=== PATIENT | female | born 2000 | race Caucasian/White ===

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

== ENCOUNTER 2021-07-17 20:34 | Emergency (ER) | payer MEDICAID ==
[2021-07-17] MEDS ORDERED: Take Home: Ciprofloxacin 500 MG Tab, 2 Tab Pack PO ONE (21:18)
--- NOTE | 2021-07-17 21:22 | EDM.PDOC ---
ED HPI GENERAL MEDICAL PROBLEM - General Stated Complaint: POSSIBLE UTI Time Seen by Provider: 07/17/21 21:17 Source of Information: Reports: Patient History Limitations: Reports: No Limitations - History of Present Illness INITIAL COMMENTS - FREE TEXT/NARRATIVE: Patient presents with a day of suprapubic pressure, dysuria, frequency. History of uti remote. no concerns for sti. no fevers of back pain. Onset Date: 07/16/21 - Related Data Allergies Allergy/AdvReac Type Severity Reaction Status Date / Time No Known Allergies Allergy Verified 03/13/20 15:17 Home Meds: Home Meds Phenazopyridine HCl [Pyridium] 100 mg PO TID #9 tablet 03/13/20 [Rx] cephALEXin [Cephalexin] 500 mg PO QID #20 tablet 03/13/20 [Rx] Ciprofloxacin HCl [Cipro] 500 mg PO BID #4 tablet 07/17/21 [Rx] Past Medical History - Past Health History Medical/Surgical History: Denies Medical/Surgical History Social & Family History - Tobacco Use Tobacco Use Status *Q: Never Tobacco User - Alcohol Use Alcohol Use History: No Alcohol Use in Last Twelve Months: No - Recreational Drug Use Recreational Drug Use: No Drug Use in Last 12 Months: No ED ROS GENERAL - Review of Systems Review Of Systems: See Below Constitutional: Reports: No Symptoms HEENT: Reports: No Symptoms Respiratory: Reports: No Symptoms Cardiovascular: Reports: No Symptoms Endocrine: Reports: No Symptoms GI/Abdominal: Reports: No Symptoms : Reports: Dysuria, Frequency, Urgency. Denies: Discharge, Flank Pain, Hematuria, Incontinence, Urinary Retention Musculoskeletal: Reports: No Symptoms Skin: Reports: No Symptoms Neurological: Reports: No Symptoms ED EXAM, GI/ABD - Physical Exam Exam: See Below Exam Limited By: No Limitations General Appearance: Alert, WD/WN, No Apparent Distress Ears: Normal External Exam Nose: Normal Inspection Throat/Mouth: Normal Inspection, Normal Lips, Normal Voice Head: Atraumatic Respiratory/Chest: No Respiratory Distress, Lungs Clear Cardiovascular: Normal Peripheral Pulses, Regular Rate, Rhythm GI/Abdominal Exam: Normal Bowel Sounds, Soft, Non-Tender Back Exam: No: CVA Tenderness (L), CVA Tenderness (R) Extremities: Normal Inspection Neurological: Alert, Oriented Course - Orders/Labs/Meds Orders: Active Orders 24 hr Category Date Time Status CULTURE URINE [RM] Stat Lab 07/17/21 21:02 Received Labs: Laboratory Tests 07/17/21 Range/Units 21:02 Urine Color Yellow (YELLOW) Urine Appearance Slightly cloudy H (CLEAR) Urine pH 5.5 (5.0-8.0) Ur Specific Admire >=1.030 Urine Protein Negative (NEGATIVE) mg/dL Urine Glucose (UA) Negative (NEGATIVE) mg/dL Urine Ketones Negative (NEGATIVE) mg/dL Urine Occult Blood Trace-intact H (NEGATIVE) Urine Nitrite Negative (NEGATIVE) Urine Bilirubin Negative (NEGATIVE) Urine Urobilinogen 1.0 (0.2) EU/dL Ur Leukocyte Esterase Trace H (NEGATIVE) Urine RBC 0-5 (NOT SEEN) /HPF Urine WBC 5-10 H (NOT SEEN) /HPF Ur Squamous Epith Cells Few H (NOT SEEN) /HPF Urine Bacteria Occasional H (NOT SEEN) /HPF Urine Mucus Occasional H (NOT SEEN) /LPF Meds: Medications Discontinued Medications Generic Name Dose Route Start Last Admin Trade Name Freq PRN Reason Stop Dose Admin Ciprofloxacin 2 packet 07/17/21 21:18 Take Home: Ciprofloxacin 500 Mg Tab, 2 Tab Pack PO 07/17/21 21:19 ONETIME ONE - Re-Assessments/Exams Free Text/Narrative Re-Assessment/Exam: 07/17/21 21:46 has a uti, last culture was e coli, good JEREMY to cipro. will give four doses and script for four more. take azo, will contact with needs for changes Departure - Departure Time of Disposition: 21:17 Disposition: Home, Self-Care 01 Clinical Impression: UTI (urinary tract infection) Qualifiers: Urinary tract infection type: site unspecified Hematuria presence: with hematuria Qualified Code(s): N39.0 - Urinary tract infection, site not specified - Discharge Information *PRESCRIPTION DRUG MONITORING PROGRAM REVIEWED*: No *COPY OF PRESCRIPTION DRUG MONITORING REPORT IN PATIENT JOHNATHAN: No Prescriptions: Ciprofloxacin HCl [Cipro] 500 mg PO BID #4 tablet Instructions: Urinary Tract Infection, Adult Additional Instructions: Take the cripo one tablet every 12 hours, and then fill the prescription to finish the entire course of antibiotics. Follow up with PCP. Urine culture is pending. you will be called if there is any need for changes in antibiotics. Drink plenty of fluids. you can use over the counter AZO tablets to help with the burning - My Orders Last 24 Hours: My Active Orders 07/17/21 21:02 CULTURE URINE [RM] Stat - Assessment/Plan Last 24 Hours: My Active Orders 07/17/21 21:02 CULTURE URINE [RM] Stat
== END 2021-07-17 22:03 | disposition home or self-care (01) ==
LOC: VM.ED 20:34
DX: N39.0 Urinary tract infection, site not specified (principal)
CPT/HCPCS: 81001; 87086; 87088; 87186; 99283; A9270

== ENCOUNTER 2021-10-13 15:49 | Emergency (ER) | payer MEDICAID ==
[2021-10-13 16:59] LABS: CORONAVIRUS COVID-19 NAA NEGATIVE (NEGATIVE)
== END 2021-10-13 16:47 | disposition home or self-care (01) ==
LOC: VM.ED 15:49
DX: J10.1 Influenza due to other identified influenza virus with other respiratory manifestations (principal); Z20.822 Contact with and (suspected) exposure to COVID-19
CPT/HCPCS: 0240U; 99283

== ENCOUNTER 2021-11-29 08:20 | Emergency (ER) | payer MEDICAID | END 2021-11-29 09:30 | disposition home or self-care (01) | LOC: VM.ED 08:20 | DX: L20.9 Atopic dermatitis, unspecified (principal) | CPT/HCPCS: 99282; 99283 ==

== ENCOUNTER 2022-10-22 07:53 | Emergency (ER) | payer MEDICAID ==
[2022-10-22 08:56] LABS: ANION GAP 12.3 mmol/L (5-15); CHLORIDE,CL 102 mmol/L (98-107); ESTIMATED GFR 108 mL/min (>=60); SODIUM,NA 139 mmol/L (136-145)
== END 2022-10-22 09:37 | disposition home or self-care (01) ==
LOC: SUPCPDRO 07:53 → VM.ED 07:53
DX: K59.00 Constipation, unspecified (principal)
CPT/HCPCS: 36415; 74019; 80053; 81001; 81025; 85025; 86140; 99284

== ENCOUNTER 2024-04-17 18:31 | Emergency (ER) | payer BC ==
[2024-04-17 19:26] LABS: APPEARANCE,URINE CLOUDY (CLEAR); BILIRUBIN,URINE MODERATE (NEGATIVE); GLUCOSE,URINE NEGATIVE (NEGATIVE); KETONES,URINE TRACE mg/dL (NEGATIVE); LEUKOCYTE ESTERASE,URINE SMALL (NEGATIVE); NITRITE,URINE NEGATIVE (NEGATIVE); OCCULT BLOOD,URINE LARGE (NEGATIVE); PH,URINE 5.5 (5.0-8.0); PROTEIN,URINE 100 mg/dL (NEGATIVE)
[2024-04-17 19:29] LABS: COLOR,URINE AMBER (YELLOW)
[2024-04-17 19:30] LABS: BACTERIA,URINE OCCASIONAL /HPF (NOT SEEN); RBC,URINE 75-100 /HPF (NOT SEEN); SQUAMOUS EPITHELIAL CELLS,UR OCCASIONAL /HPF (NOT SEEN); WBC,URINE 20-30 /HPF (NOT SEEN)
[2024-04-17 19:32] LABS: MUCUS,URINE OCCASIONAL /LPF (NOT SEEN)
[2024-04-17] MEDS: Nitrofurantoin Monohydrate/Macrocrystalline 100 MG Cap PO SCH (20:34)
== END 2024-04-17 20:20 | disposition home or self-care (01) ==
LOC: VM.ED 18:31
DX: N30.01 Acute cystitis with hematuria (principal)
CPT/HCPCS: 81001; 87086; 99283; A9270-GY